=== PATIENT | female | born 1945 | race Caucasian/White ===

== ENCOUNTER 2018-11-04 20:20 | Emergency (ER) | payer MEDICARE, OTHER ==
[~2018-11-04] VITALS: Wt 72.9 kg
--- NOTE | 2018-11-04 22:41 | ERD ---
ER Documentation Chief Complaint Chief Complaint LAC TO HEAD S/P TRIP OVER TRASH CAN, ABRASIONS TO R HAND HPI 73-year-old female with past medical history of hypertension, HLD, hypothyroidi sm presents that is post fall earlier today around 7 PM. Patient states she was taking out trash when she tripped over a trash can falling forward and sustaining laceration/hematoma to head. She denies LOC or any other injuries at time of evaluation. Patient states she was able to get up on her own power and proceed to her neighbor's home. She denies subsequent symptoms such as persistent or worsening headache, dizziness, lightheadedness, back pain, vision changes, chest pain, shortness of breath, dyspnea, nausea, vomiting, abdominal pain, lower extremity or upper extremity pain or paresthesias. Patient accompanied by daughter who dates mother since incident has been appropriate and alert. Patient current complaint of mild pain at site of head injury. Triage vital signs notable for elevated blood pressure. Patient states she did not take her blood pressure medications today. She otherwise is without complaint. ROS All systems reviewed and are negative except as per history of present illness. Medications Home Meds Active Scripts Naproxen* (Naprosyn*) 500 Mg Tablet, 500 MG PO BID PRN for PAIN AND/OR INFLAMMATION, #30 TAB Prov:RADHA COREY PA-C 11/05/18 Allergies Allergies: Coded Allergies: No Known Allergy (Unverified , 11/04/18) PMhx/Soc History of Surgery: Yes (Bilat cataract) Anesthesia Reaction: No Hx Neurological Disorder: No Hx Respiratory Disorders: No Hx Cardiac Disorders: Yes (HTN) Hx Psychiatric Problems: No Hx Miscellaneous Medical Probl: Yes (High cholesterol, hyperthyroid) Hx Alcohol Use: No Hx Substance Use: No Hx Tobacco Use: No Smoking Status: Never smoker FmHx Family History: coronary disease Physical Exam Vitals Vital Signs Date Temp Pulse Resp B/P (MAP) Pulse Ox O2 O2 Flow FiO2 Time Delivery Rate 11/05/18 98.2 72 20 185/87 100 Room Air 01:02 (119) 11/05/18 77 212/90 00:20 (130) 11/04/18 78 18 196/89 97 Room Air 23:45 (124) 11/04/18 194/91 22:34 (125) 11/04/18 98.0 95 18 213/100 95 20:26 (137) Physical Exam I have reviewed the triage vital signs. Const: Well nourished, well developed, appears stated age Eyes: PERRL, no conjunctival injection HENT: NCAT, Neck supple without meningismus CV: RRR, Warm, well-perfused extremities RESP: CTAB, Unlabored respiratory effort GI: soft, non-tender, non-distended, no masses MSK: No gross deformities appreciated Skin: Warm, dry. No rashes Neuro: grossly non focal Psych: Appropriate mood and affect. Results 24 hrs Current Medications Medications Dose Sig/Sage Start Time Status Last (Trade) Ordered Route PRN Stop Time Admin Dose Reason Admin Losartan 100 mg ONCE ONCE 11/05/18 DC 11/05/18 Potassium PO 00:00 00:18 (Cozaar) 11/05/18 00:01 Procedures/MDM 73 female presents status post fall. With large laceration and hematoma to head. No reported LOC patient with unremarkable neurological examination. I have low suspicion for intracranial process such as subdural hematoma, ICH lan anting further emergent work-up or care. CT of head was without acute finding. Blood pressure noted to be elevated in setting of not taking medications today. Patient with improvement in blood pressure after administration of her home dose losartan. No concerning symptoms indicating endorgan dysfunction. ED course/plan: CT head without evidence of acute process EKG without any concerning changes, normal sinus rhythm Laceration of his scalp closed with evens without incident,no bleeding from site, clot already forming at site of laceration DISPOSITION PLAN: We discussed follow up with the patient's primary care doctor within 24 to 48 hours. Patient counseled regarding my diagnostic impression and care plan. Prior to discharge all questions answered. Pt agrees with treatment plan and understands strict return precautions. Precautionary instructions provided including instructions to return to the ER if not improving or for any worsening or changing symptoms or concerns. Disclaimer: Inadvertent spelling and grammatical errors are likely due to EHR/dictation software use and do not reflect on the overall quality of patient care. Also, please note that the electronic time recorded on this note does not necessarily reflect the actual time of the patient encounter. Departure Condition: Stable RADHA COREY PA-C November 04, 2018 22:41
[2018-11-05] MEDS ORDERED: LOSARTAN 50 MG TAB PO ONE
[2018-11-05] MEDS ORDERED: NAPR-985 PO (00:37)
[2018-11-05 01:02] VITALS: BP 185/87; PULSE 72; RESP 20
== END 2018-11-05 01:27 | disposition home or self-care (01) ==
LOC: FTE 20:20
DX: S01.01XA Laceration without foreign body of scalp, initial encounter (principal); I10 Essential (primary) hypertension; E03.9 Hypothyroidism, unspecified; W26.8XXA Contact with other sharp object(s), not elsewhere classified, initial encounter; Y92.9 Unspecified place or not applicable
CPT/HCPCS: 70450; 93005